=== PATIENT | male | born 1960 | race Caucasian/White ===

== ENCOUNTER 2016-09-04 18:28 | Inpatient (IN) | payer OTHER, MEDICAID ==
[~2016-09-04] VITALS: Ht 180.3 cm; Wt 76.0 kg
--- NOTE | ~2016-09-04 | ST ---
[place], [place] EXERCISE STRESS TEST REPORT NAME: CHIVO GORDILLO I UNIT #: [id number] ROOM: 415 DOCTOR: SUDHAKAR GUNN MD BIRTHDATE: [birth year] DOS: 09/05/2016 Lexiscan portion of the Lexiscan Cardiolite. Baseline cardiogram sinus rhythm with nonspecific ST-T changes. The patient developed chest discomfort with Lexiscan. Q-waves are present in the inferior leads. Blood pressure and heart rate responses normal. FINAL IMPRESSION: Abnormal EKG with old inferior wall myocardial infarction, did develop chest discomfort with Lexiscan. Blood pressure and heart rate response was normal. Nuclear images will be reported separately. SUDHAKAR GUNN MD CM:STRESS:EXERCISE STRESS TEST REPORT [id number] SUDHAKAR GUNN MD
--- NOTE | ~2016-09-04 | CON ---
[place], [place] REPORT OF CONSULTATION NAME: CHIVO GORDILLO I UNIT #: [id number] ROOM: 415 DOCTOR: SUDHAKAR GUNN MD BIRTHDATE: [birth year] DOS: 09/05/2016 CHIEF COMPLAINT: Chest pain. HISTORY OF PRESENT ILLNESS: A 56-year-old gentleman who presented to the Emergency Room with severe chest discomfort, developed while lying in the bed. Chest pain was located in the midsternal area. The patient has a history of previous myocardial infarction and stent placed about couple of years ago, previous catheterization revealed patency of the stents. The patient is noncompliant, does not take his medications. He stopped all his meds. He admits to diaphoresis and shortness of breath. PAST MEDICAL HISTORY: Coronary artery disease, hypertension, myocardial infarction, hyperlipidemia, noncompliance, obstructive sleep apnea. PAST SURGICAL HISTORY: Cardiac stent, history of hernia repair and previous back surgery. SOCIAL HISTORY: Does not drink alcohol. Denies any smoke. Previous three pack per day smoker for 47 years. Also, marijuana use. Ex-smoker. FAMILY HISTORY: Positive for coronary artery disease. ALLERGIES: TRAMADOL. HOME MEDICATIONS: Aspirin and nitroglycerin. REVIEW OF SYSTEMS: CONSTITUTIONAL: No fever, no chills. HEENT: No visual disturbances or hearing problems. RESPIRATORY SYSTEM: ____. CARDIOVASCULAR SYSTEM: As described today in the HPI with chest discomfort. ABDOMEN: No GI issues. GENITOURINARY: No dysuria or hematuria. NEUROLOGIC: No syncope. SKIN: No rashes. PHYSICAL EXAMINATION: VITAL SIGNS: Blood pressure is 115/60. HEENT: Unremarkable. NECK: Supple. No JVD, no thyromegaly, no lymphadenopathy. LUNGS: Diminished breath sounds. HEART: Sounds are regular. ABDOMEN: Soft, nontender. NEUROLOGICAL: Stable. LABORATORY DATA: EKG sinus rhythm with old inferior wall NC. Sodium 143, potassium 3.8, BUN and creatinine are normal. Hemoglobin, hematocrit within normal limits. Chest x-ray is normal. [place], [place] REPORT OF CONSULTATION NAME: CHIVO GORDILLO I UNIT #: [id number] ROOM: 415 DOCTOR: SUDHAKAR GUNN MD BIRTHDATE: [birth year] IMPRESSION AND PLAN: The patient with known coronary artery with significant chest pain, hypertension, noncompliance, hyperlipidemia. The patient stopped taking all the beta blockers and lipid lowering agents and antiplatelet drugs in the past. Proceed with a Lexiscan Cardiolite stress test. Agree with beta blockers and atorvastatin, and we will closely follow up, further management will depend upon the stress findings. SUDHAKAR GUNN MD CM:CONSTR:REPORT OF CONSULTATION 0725 09/05/16 2204 interface
[~2016-09-04 18:28] MED LIST: 'PARAFON FORTE500 M1 PO; ANAPROX DS550 MG PO; ASPI-COR81 M1 PO; ASPIR-TRIN325 MG PO; ASPIRIN CHEWABL81 M1 PO; ATORVASTATIN CA80 M1 PO; BLOOD PRESURE MED; CLOPIDOGREL75 MG PO; CUBICIN500 MG IV; CYCLOBENZAPRINE10 MG PO; DOLOBID500 MG PO; FLEXERIL10 MG PO; HEPARIN IV; HYDROCO/APAP TAB 5-3; LEVAQUIN750 MG PO; LEVOFLOXACIN; LIDODERM5% TP; LISINOPRIL10 M1 PO; LISINOPRIL5 MG PO; LOPRESSOR25 MG PO; METOPROLOL SUCC25 M2 PO; NAPROSYN500 MG PO; NEURONTIN300 MG PO; NITROSTAT0.4 MG SL; NORCO 325 MG-51 TAB PO; PERCOCET 325 MG1 TA2 PO; PLAVIX75 M1 PO; PLAVIX75 MG PO; PREDNISONE20 M1 PO; PROBIOTIC FORMU1 CAP PO; PROCHLORPERAZIN10 M1 PO; RANEXA500 MG PO; SIMVASTATIN20 MG PO; SIMVASTATIN40 MG PO; SORBITRATE PO; TOBRADEX 0.1%-0.5 ML OPH; TRAMADOL HCL50 MG PO; ULTRAM50 MG PO; VIBRAMYCIN100 MG PO; VICODIN 5-3001 EACH PO; [UNRECOGNIZED DRUG - OTHER]; [UNRECOGNIZED DRUG - OTHER] IV; [UNRECOGNIZED DRUG - OTHER] IV
[2016-09-04 18:44] VITALS: BP 120/88
[2016-09-04 18:50] LABS: BASO # 0.1 10*3/uL (0.0-0.1); BASO % 0.5 % (0.0-1.0); EOS # 0.2 10*3/uL (0.0-0.4); EOS % 1.3 % (1.0-4.0); HEMATOCRIT 47.5 % (42.0-52.0); HEMOGLOBIN 15.1 g/dl (14.0-18.0); LYMPH # 2.4 10*3/uL (1.3-4.4); MEAN CORPUSCULAR HGB 29.5 pg (27.0-31.0); MEAN CORPUSCULAR HGB CONC 31.8 g/dl (33.0-37.0); MEAN PLATELET VOLUME 9.6 fl (9.6-12.3); MONO # 0.5 10*3/uL (0.1-1.0); MONO % 4.6 % (3.0-9.0); NEUT # 8.2 10*3/uL (2.3-7.9); NEUT % 72.4 % (47.0-73.0); PLATELET COUNT AUTOMATED 314 10*3/uL (130-400); RED BLOOD COUNT 5.11 10*6/uL (4.50-5.90); RED CELL DISTRI WIDTH 14.6 % (0-14.5); WHITE BLOOD COUNT 11.3 10*3/uL (4.8-10.8)
[2016-09-04 19:00] LABS: INTERNATIONAL NORM RATIO 0.9 (2.0-3.5)
[2016-09-04 19:06] LABS: ALKALINE PHOSPHATASE 113 U/L (45-117); BILIRUBIN, TOTAL 0.2 mg/dl (0.2-1.0); BUN 6 mg/dl (7-24); CARBON DIOXIDE 31 mmol/L (21-32); CHLORIDE 105 mmol/L (98-107); EST GLOM FILT AFRICAN AMERICAN > 60 ml/min; GLUCOSE 93 mg/dL (65-99); MAGNESIUM 2.3 mg/dL (1.5-2.1); POTASSIUM 3.8 mmol/L (3.5-5.1); SGOT/AST 10 IU/L (3-35); SGPT/ALT 11 U/L (12-78); SODIUM 143 mmol/L (136-145); TOTAL PROTEIN 7.5 gm/dL (6.4-8.2)
[2016-09-04 19:09] LABS: TROPONIN I < 0.015 ng/ml (<0.045)
[2016-09-04] MEDS ORDERED: ASPIRIN CHEWABL81 MG PO (19:15)
[2016-09-04] MEDS ORDERED: NITROSTAT0.3 M1 SL (19:15)
[2016-09-04 19:20] VITALS: BP 115/78
[2016-09-04 19:40] VITALS: BP 122/89
[2016-09-04 20:26] VITALS: BP 115/59
[2016-09-04 21:00] VITALS: BP 115/80
[2016-09-05] VITALS: BP 113/93
[2016-09-05 00:43] LABS: CKMB 0.7 ng/ml (0.5-3.6); CPK 38 U/L (39-308); TROPONIN I < 0.015 ng/ml (<0.045)
[2016-09-05 08:00] VITALS: BP 121/82
[2016-09-05 09:12] LABS: BASO # 0.1 10*3/uL (0.0-0.1); BASO % 0.4 % (0.0-1.0); EOS # 0.2 10*3/uL (0.0-0.4); EOS % 1.9 % (1.0-4.0); HEMATOCRIT 48.5 % (42.0-52.0); HEMOGLOBIN 15.2 g/dl (14.0-18.0); LYMPH # 1.7 10*3/uL (1.3-4.4); MEAN CORPUSCULAR HGB 29.5 pg (27.0-31.0); MEAN CORPUSCULAR HGB CONC 31.3 g/dl (33.0-37.0); MEAN PLATELET VOLUME 9.4 fl (9.6-12.3); MONO # 0.5 10*3/uL (0.1-1.0); MONO % 4.1 % (3.0-9.0); NEUT # 8.9 10*3/uL (2.3-7.9); NEUT % 78.4 % (47.0-73.0); PLATELET COUNT AUTOMATED 317 10*3/uL (130-400); RED BLOOD COUNT 5.16 10*6/uL (4.50-5.90); RED CELL DISTRI WIDTH 14.7 % (0-14.5); WHITE BLOOD COUNT 11.3 10*3/uL (4.8-10.8)
[2016-09-05 09:51] LABS: ALBUMIN 2.8 gm/dl (3.1-4.5); ALKALINE PHOSPHATASE 111 U/L (45-117); BILIRUBIN, TOTAL 0.2 mg/dl (0.2-1.0); BUN 8 mg/dl (7-24); CARBON DIOXIDE 34 mmol/L (21-32); CHLORIDE 105 mmol/L (98-107); CHOLESTEROL 181 mg/dL (<200); EST GLOM FILT AFRICAN AMERICAN > 60 ml/min; FREE T4 0.86 ng/dl (0.76-1.46); GLUCOSE 123 mg/dL (65-99); HDL CHOLESTEROL 38 mg/dl (40-60); LDL CHOLESTEROL 123 mg/dL (9-159); MAGNESIUM 2.3 mg/dL (1.5-2.1); PHOSPHOROUS 2.6 mg/dL (2.5-4.9); POTASSIUM 3.5 mmol/L (3.5-5.1); SGOT/AST 8 IU/L (3-35); SGPT/ALT 9 U/L (12-78); SODIUM 141 mmol/L (136-145); TOTAL PROTEIN 7.3 gm/dL (6.4-8.2); TRIGLYCERIDES 99 mg/dl (<150); VLDL CHOLESTEROL 20 mg/dL (6-40)
[2016-09-05 09:55] LABS: VITAMIN D, 25-HYDROXY 12.9 ng/mL (30-100)
[2016-09-05 09:56] LABS: FOLIC ACID 5.55 ng/mL (>5.38)
[2016-09-05 10:15] LABS: HEMOGLOBIN A1c 5.7 % (4.8-5.6)
[2016-09-05 11:01] LABS: INTERNATIONAL NORM RATIO 0.9 (2.0-3.5)
[2016-09-05 11:24] LABS: CKMB 0.9 ng/ml (0.5-3.6); CPK 39 U/L (39-308)
[2016-09-05 11:25] LABS: TROPONIN I < 0.015 ng/ml (<0.045)
[2016-09-05 12:00] VITALS: BP 110/68
[2016-09-05 16:00] VITALS: BP 107/77
[2016-09-05] MEDS ORDERED: ATORVASTATIN CA40 M1 PO (18:29)
[2016-09-05] MEDS ORDERED: METOPROLOL SUCC25 M2 PO (18:29)
[2016-09-05 20:00] VITALS: BP 97/61
[2016-09-06] VITALS: BP 106/68
[2016-09-06] MEDS ORDERED: B12100 MC1 PO (09:50)
[2016-09-06] MEDS ORDERED: VITAMIN D31000 IU PO (09:50)
== END 2016-09-06 08:05 | disposition short-term general hospital (02) | DRG 281 ==
LOC: ED 18:28 → EDHOLD 19:49 → 4E 19:49
PROVIDERS: Emergency Medicine; Hospitalist
PROC: 4A02XM4 Measurement of Cardiac Total Activity, External Approach (ICD-10-PCS; principal; 2016-09-05)
PROC: 3E073KZ Introduction of Other Diagnostic Substance into Coronary Artery, Percutaneous Approach (ICD-10-PCS; principal; 2016-09-05)
DX: I21.3 ST elevation (STEMI) myocardial infarction of unspecified site (principal); E44.0 Moderate protein-calorie malnutrition; E83.41 Hypermagnesemia; I10 Essential (primary) hypertension; I25.10 Atherosclerotic heart disease of native coronary artery without angina pectoris; G47.33 Obstructive sleep apnea (adult) (pediatric); E78.5 Hyperlipidemia, unspecified; M19.90 Unspecified osteoarthritis, unspecified site; D72.829 Elevated white blood cell count, unspecified; E55.9 Vitamin D deficiency, unspecified; R94.39 Abnormal result of other cardiovascular function study; E53.8 Deficiency of other specified B group vitamins; Z82.49 Family history of ischemic heart disease and other diseases of the circulatory system; Z84.89 Family history of other specified conditions; Z88.8 Allergy status to other drugs, medicaments and biological substances; Z95.5 Presence of coronary angioplasty implant and graft; Z79.82 Long term (current) use of aspirin; I25.2 Old myocardial infarction; Z79.899 Other long term (current) drug therapy; Z91.19 Patient's noncompliance with other medical treatment and regimen; Z68.25 Body mass index [BMI] 25.0-25.9, adult; Z68.23 Body mass index [BMI] 23.0-23.9, adult

== ENCOUNTER 2016-09-14 16:13 | Inpatient (IN) | payer OTHER, MEDICAID ==
[2016-09-14] VITALS (9 sets, daily range): BP systolic 77–122; BP diastolic 40–80
[~2016-09-14] VITALS: Ht 180.3 cm; Wt 77.8 kg
[~2016-09-14 16:13] MED LIST changes: +ASPIRIN CHEWABL81 MG PO; +ATORVASTATIN CA40 M1 PO; +B12100 MC1 PO; +NITROSTAT0.3 M1 SL; +VITAMIN D31000 IU PO
[2016-09-14 16:34] LABS: BASO % 0.4 % (0.0-1.0); EOS # 0.2 10*3/uL (0.0-0.4); EOS % 2.1 % (1.0-4.0); HEMATOCRIT 37.5 % (42.0-52.0); HEMOGLOBIN 11.9 g/dl (14.0-18.0); IG # 0.1 10*3/uL (0.0-0.1); LYMPH # 2.5 10*3/uL (1.3-4.4); LYMPH % 24.3 % (27.0-41.0); MEAN CELL VOLUME 92.4 fl (80.0-94.0); MEAN CORPUSCULAR HGB 29.3 pg (27.0-31.0); MEAN CORPUSCULAR HGB CONC 31.7 g/dl (33.0-37.0); MEAN PLATELET VOLUME 9.7 fl (9.6-12.3); MONO # 0.6 10*3/uL (0.1-1.0); MONO % 6.2 % (3.0-9.0); NEUT # 6.9 10*3/uL (2.3-7.9); NEUT % 66.5 % (47.0-73.0); PLATELET COUNT AUTOMATED 313 10*3/uL (130-400); RED BLOOD COUNT 4.06 10*6/uL (4.50-5.90); RED CELL DISTRI WIDTH 14.8 % (0-14.5); WHITE BLOOD COUNT 10.3 10*3/uL (4.8-10.8)
[2016-09-14 16:43] LABS: PROTHROMBIN TIME 10.5 SECONDS (9.0-12.4)
[2016-09-14 16:49] LABS: ALBUMIN 2.7 gm/dl (3.1-4.5); ALKALINE PHOSPHATASE 81 U/L (45-117); BILIRUBIN, TOTAL 0.5 mg/dl (0.2-1.0); BUN 7 mg/dl (7-24); C-REACTIVE PROTEIN 3.52 MG/DL (0-0.3); CARBON DIOXIDE 30 mmol/L (21-32); CHLORIDE 108 mmol/L (98-107); CKMB 1.6 ng/ml (0.5-3.6); CPK 47 U/L (39-308); EST GLOM FILT AFRICAN AMERICAN > 60 ml/min; GLUCOSE 91 mg/dL (65-99); MAGNESIUM 2.2 mg/dL (1.5-2.1); POTASSIUM 3.4 mmol/L (3.5-5.1); SGOT/AST 12 IU/L (3-35); SGPT/ALT 11 U/L (12-78); SODIUM 147 mmol/L (136-145); TOTAL PROTEIN 6.4 gm/dL (6.4-8.2)
[2016-09-14 16:52] LABS: TROPONIN I 0.078 ng/ml (<0.045)
[2016-09-14] MEDS ORDERED: CLOPIDOGREL75 MG PO (17:44)
[2016-09-14] MEDS ORDERED: COZAAR25 M1 PO (18:58)
== END 2016-09-14 22:05 | disposition left against medical advice (07) | DRG 312 ==
LOC: ED 16:13 → EDHOLD 17:45 → 5E 17:59
PROVIDERS: Student in an Organized Health Care Education/Training Program
DX: I95.2 Hypotension due to drugs (principal); E43 Unspecified severe protein-calorie malnutrition; E87.0 Hyperosmolality and hypernatremia; E53.0 Riboflavin deficiency; I25.10 Atherosclerotic heart disease of native coronary artery without angina pectoris; I25.2 Old myocardial infarction; I10 Essential (primary) hypertension; E78.5 Hyperlipidemia, unspecified; M51.36 Other intervertebral disc degeneration, lumbar region; G47.33 Obstructive sleep apnea (adult) (pediatric); Z95.5 Presence of coronary angioplasty implant and graft; Z82.49 Family history of ischemic heart disease and other diseases of the circulatory system; Z88.6 Allergy status to analgesic agent; D64.9 Anemia, unspecified; R79.82 Elevated C-reactive protein (CRP); E83.41 Hypermagnesemia; E87.6 Hypokalemia; E55.9 Vitamin D deficiency, unspecified; Z68.23 Body mass index [BMI] 23.0-23.9, adult; R07.9 Chest pain, unspecified

== ENCOUNTER 2017-01-01 22:42 | Emergency (ER) | payer OTHER ==
[~2017-01-01] VITALS: Ht 180.3 cm; Wt 72.6 kg
[~2017-01-01 22:42] MED LIST changes: +COZAAR25 M1 PO
[2017-01-01 22:47] VITALS: BP 148/78
[2017-01-02] MEDS ORDERED: Motrin,Rufen800 MG PO (01:42)
[2017-01-02] MEDS ORDERED: PERCOCET 325 MG1 TA2 PO (01:42)
== END 2017-01-02 02:29 | disposition home or self-care (01) ==
LOC: ED 22:42
DX: R09.1 Pleurisy (principal); I25.10 Atherosclerotic heart disease of native coronary artery without angina pectoris; I25.2 Old myocardial infarction; E78.5 Hyperlipidemia, unspecified; I10 Essential (primary) hypertension; M51.36 Other intervertebral disc degeneration, lumbar region; F17.200 Nicotine dependence, unspecified, uncomplicated; Z88.6 Allergy status to analgesic agent; Z79.82 Long term (current) use of aspirin; Z79.899 Other long term (current) drug therapy

== ENCOUNTER 2017-07-22 16:05 | Emergency (ER) | payer OTHER ==
[~2017-07-22] VITALS: Ht 154.9 cm; Wt 74.8 kg
[~2017-07-22 16:05] MED LIST changes: +Motrin,Rufen800 MG PO
[2017-07-22 16:20] VITALS: BP 149/89
[2017-07-22] MEDS ORDERED: MEDROL DOSEPAK4 MG PO (17:31)
[2017-07-22] MEDS ORDERED: NAPROSYN500 MG PO (17:31)
== END 2017-07-22 17:38 | disposition home or self-care (01) ==
LOC: ED 16:05
DX: R09.1 Pleurisy (principal); I25.10 Atherosclerotic heart disease of native coronary artery without angina pectoris; I10 Essential (primary) hypertension; E78.5 Hyperlipidemia, unspecified; I25.2 Old myocardial infarction; Z88.5 Allergy status to narcotic agent; Z79.82 Long term (current) use of aspirin; Z79.899 Other long term (current) drug therapy

== ENCOUNTER 2017-08-06 12:02 | Emergency (ER) | payer OTHER ==
[~2017-08-06] VITALS: Ht 180.3 cm; Wt 72.6 kg
[~2017-08-06 12:02] MED LIST changes: +MEDROL DOSEPAK4 MG PO
[2017-08-06 12:09] VITALS: BP 136/73
[2017-08-06] MEDS ORDERED: Tobrex Ophth S2.5 ML OPH (12:18)
== END 2017-08-06 12:24 | disposition home or self-care (01) ==
LOC: ED 12:02
DX: H10.9 Unspecified conjunctivitis (principal); F12.10 Cannabis abuse, uncomplicated; Z87.891 Personal history of nicotine dependence; Z95.5 Presence of coronary angioplasty implant and graft; Z98.890 Other specified postprocedural states; Z79.82 Long term (current) use of aspirin; Z79.899 Other long term (current) drug therapy; Z88.6 Allergy status to analgesic agent

== ENCOUNTER 2017-08-11 13:00 | Emergency (ER) | payer OTHER ==
[~2017-08-11] VITALS: Ht 180.3 cm; Wt 74.8 kg
[~2017-08-11 13:00] MED LIST changes: +Tobrex Ophth S2.5 ML OPH
[2017-08-11 13:10] VITALS: BP 133/93
[2017-08-11] MEDS ORDERED: FLONASE ALLERG9.9 ML NAS (13:18)
[2017-08-11] MEDS ORDERED: CLARITIN10 MG PO (13:18)
[2017-08-11] MEDS ORDERED: TOBRADEX 0.1%-0.5 ML OPH (13:19)
== END 2017-08-11 13:39 | disposition home or self-care (01) ==
LOC: ED 13:00
DX: H10.9 Unspecified conjunctivitis (principal); I10 Essential (primary) hypertension; I25.10 Atherosclerotic heart disease of native coronary artery without angina pectoris; E78.5 Hyperlipidemia, unspecified; Z88.6 Allergy status to analgesic agent; Z79.899 Other long term (current) drug therapy; Z79.82 Long term (current) use of aspirin; Z87.891 Personal history of nicotine dependence

== ENCOUNTER 2017-12-05 21:36 | Inpatient (IN) | payer OTHER ==
[~2017-12-05] VITALS: Ht 180.3 cm; Wt 78.7 kg
--- NOTE | ~2017-12-05 | EKG ---
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
--- NOTE | ~2017-12-05 | EKG ---
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
[~2017-12-05 21:36] MED LIST changes: +CLARITIN10 MG PO; +FLONASE ALLERG9.9 ML NAS
[2017-12-05 21:38] VITALS: BP 154/87
[2017-12-05 21:46] LABS: BASO # 0.1 10*3/uL (0.0-0.1); BASO % 0.7 % (0.0-1.0); EOS # 0.2 10*3/uL (0.0-0.4); EOS % 1.5 % (1.0-4.0); HEMATOCRIT 51.7 % (42.0-52.0); HEMOGLOBIN 15.8 g/dl (14.0-18.0); LYMPH # 3.2 10*3/uL (1.3-4.4); LYMPH % 28.8 % (27.0-41.0); MEAN CELL VOLUME 91.5 fl (80.0-94.0); MEAN CORPUSCULAR HGB CONC 30.6 g/dl (33.0-37.0); MEAN PLATELET VOLUME 9.9 fl (9.6-12.3); MONO # 0.6 10*3/uL (0.1-1.0); MONO % 5.4 % (3.0-9.0); NEUT % 63.3 % (47.0-73.0); PLATELET COUNT AUTOMATED 305 10*3/uL (130-400); RED BLOOD COUNT 5.65 10*6/uL (4.50-5.90); RED CELL DISTRI WIDTH 15.4 % (0-14.5)
[2017-12-05 21:57] LABS: ACT PARTIAL THROMBO TIME 23.7 SECONDS (20.8-31.5)
[2017-12-05 22:01] VITALS: BP 168/64
[2017-12-05 22:04] LABS: ALBUMIN 3.3 gm/dl (3.1-4.5); ALKALINE PHOSPHATASE 107 U/L (45-117); BUN 7 mg/dl (7-24); CHLORIDE 102 mmol/L (98-107); CREATININE 1.22 mg/dL (0.70-1.30); POTASSIUM 3.5 mmol/L (3.5-5.1); SGOT/AST 9 IU/L (3-35); SGPT/ALT 9 U/L (12-78); SODIUM 140 mmol/L (136-145)
[2017-12-05 22:05] VITALS: BP 154/87
[2017-12-05 22:05] LABS: TROPONIN I < 0.015 ng/ml (<0.045)
[2017-12-05 23:00] VITALS: BP 123/75
[2017-12-05 23:24] VITALS: BP 102/64
[2017-12-06] VITALS: BP 131/94
[2017-12-06 00:05] VITALS: BP 131/94
== END 2017-12-06 01:25 | disposition left against medical advice (07) | DRG 392 ==
LOC: ED 21:36 → EDHOLD 22:42 → 5E 23:38
PROVIDERS: Emergency Medicine Emergency Medical Services
DX: K21.9 Gastro-esophageal reflux disease without esophagitis (principal); I42.0 Dilated cardiomyopathy; I50.22 Chronic systolic (congestive) heart failure; I11.0 Hypertensive heart disease with heart failure; I25.10 Atherosclerotic heart disease of native coronary artery without angina pectoris; E78.5 Hyperlipidemia, unspecified; Z53.21 Procedure and treatment not carried out due to patient leaving prior to being seen by health care provider; G47.33 Obstructive sleep apnea (adult) (pediatric); F41.9 Anxiety disorder, unspecified; R00.0 Tachycardia, unspecified; D72.829 Elevated white blood cell count, unspecified; I35.8 Other nonrheumatic aortic valve disorders; D64.9 Anemia, unspecified; E53.8 Deficiency of other specified B group vitamins; E55.9 Vitamin D deficiency, unspecified; R73.03 Prediabetes; M51.36 Other intervertebral disc degeneration, lumbar region; J44.9 Chronic obstructive pulmonary disease, unspecified; F12.10 Cannabis abuse, uncomplicated; Z88.8 Allergy status to other drugs, medicaments and biological substances; I25.2 Old myocardial infarction; Z82.49 Family history of ischemic heart disease and other diseases of the circulatory system; Z79.82 Long term (current) use of aspirin; Z79.899 Other long term (current) drug therapy

== ENCOUNTER 2018-08-16 15:38 | Emergency (ER) | payer OTHER ==
[~2018-08-16] VITALS: Ht 180.3 cm; Wt 75.7 kg
--- NOTE | ~2018-08-16 | EKG ---
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
[2018-08-16 15:39] VITALS: BP 144/88
[2018-08-16 16:54] LABS: BASO # 0.1 10*3/uL (0.0-0.1); BASO % 0.7 % (0.0-1.0); EOS % 0.3 % (1.0-4.0); HEMATOCRIT 47.2 % (42.0-52.0); HEMOGLOBIN 15.1 g/dl (14.0-18.0); LYMPH # 0.4 10*3/uL (1.3-4.4); LYMPH % 5.4 % (27.0-41.0); MEAN CELL VOLUME 90.8 fl (80.0-94.0); MEAN PLATELET VOLUME 9.9 fl (9.6-12.3); MONO # 0.6 10*3/uL (0.1-1.0); MONO % 8.5 % (3.0-9.0); NEUT % 84.8 % (47.0-73.0); PLATELET COUNT AUTOMATED 313 10*3/uL (130-400); RED CELL DISTRI WIDTH 15.2 % (0-14.5)
[2018-08-16 17:50] LABS: ALBUMIN 3.1 gm/dl (3.1-4.5); ALKALINE PHOSPHATASE 115 U/L (45-117); BUN 8 mg/dl (7-24); CHLORIDE 103 mmol/L (98-107); CREATININE 1.06 mg/dL (0.70-1.30); LIPASE 59 U/L (73-393); POTASSIUM 4.1 mmol/L (3.5-5.1); SGOT/AST 16 IU/L (3-35); SGPT/ALT 10 U/L (12-78); SODIUM 137 mmol/L (136-145); TOTAL PROTEIN 8.5 gm/dL (6.4-8.2)
[2018-08-16 18:01] LABS: BILIRUBIN 1+ (NEGATIVE); BLOOD 2+ (NEGATIVE); CLARITY CLEAR (CLEAR); COLOR YELLOW (YELLOW); GLUCOSE NEGATIVE (NEGATIVE); KETONE 3+ (NEGATIVE); LEUKO ESTERASE NEGATIVE (NEGATIVE); NITRITE NEGATIVE (NEGATIVE); SPECIFIC GRAVITY >= 1.030 (1.005-1.030); UROBILINOGEN 0.2 E.U./dl (0.2-1.0)
[2018-08-16 18:09] LABS: TROPONIN I < 0.015 ng/ml (<0.045)
[2018-08-16 18:17] LABS: EPITHELIAL CELLS 0-2; HYALINE CAST 0-2; MUCOUS 3+; WBC 0-2 wbc/hpf (0-5)
[2018-08-16] MEDS ORDERED: PREDNISONE10 MG PO (18:32)
[2018-08-16] MEDS ORDERED: VIBRAMYCIN100 MG PO (18:32)
[2018-08-16] MEDS ORDERED: PROAIR HFA8.5 GM INH (18:32)
[2018-08-16] MEDS ORDERED: TESSALON PERLE100 M1 PO (18:32)
[2018-10-31] MEDS ORDERED: INDOMETHACIN50 MG PO (01:31)
== END 2018-08-16 18:55 | disposition home or self-care (01) ==
LOC: ED 15:38
PROVIDERS: Physician Assistant
DX: B34.9 Viral infection, unspecified (principal); J20.9 Acute bronchitis, unspecified; J44.9 Chronic obstructive pulmonary disease, unspecified; Z88.6 Allergy status to analgesic agent; Z79.899 Other long term (current) drug therapy; Z79.82 Long term (current) use of aspirin; Z72.0 Tobacco use

== ENCOUNTER 2019-01-21 23:30 | Emergency (ER) | payer OTHER ==
[~2019-01-21] VITALS: Ht 180.3 cm; Wt 81.6 kg
--- NOTE | ~2019-01-21 | EKG ---
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
[~2019-01-21 23:30] MED LIST changes: +INDOMETHACIN50 MG PO; +PREDNISONE10 MG PO; +PROAIR HFA8.5 GM INH; +TESSALON PERLE100 M1 PO
[2019-01-21 23:31] VITALS: BP 165/97
[2019-01-21 23:50] LABS: BASO # 0.1 10*3/uL (0.0-0.1); BASO % 0.6 % (0.0-1.0); EOS # 0.1 10*3/uL (0.0-0.4); EOS % 1.2 % (1.0-4.0); HEMATOCRIT 43.8 % (42.0-52.0); LYMPH # 2.6 10*3/uL (1.3-4.4); LYMPH % 23.7 % (27.0-41.0); MEAN CORPUSCULAR HGB 29.4 pg (27.0-31.0); MEAN PLATELET VOLUME 9.9 fl (9.6-12.3); MONO # 0.7 10*3/uL (0.1-1.0); MONO % 6.6 % (3.0-9.0); NEUT # 7.5 10*3/uL (2.3-7.9); NEUT % 67.7 % (47.0-73.0); PLATELET COUNT AUTOMATED 341 10*3/uL (130-400); RED BLOOD COUNT 4.76 10*6/uL (4.50-5.90); RED CELL DISTRI WIDTH 14.6 % (0-14.5); WHITE BLOOD COUNT 11.1 10*3/uL (4.8-10.8)
[2019-01-22 00:01] LABS: ACT PARTIAL THROMBO TIME 28.5 SECONDS (20.0-32.1)
[2019-01-22 00:07] LABS: ALBUMIN 2.8 gm/dl (3.1-4.5); ALKALINE PHOSPHATASE 96 U/L (45-117); BUN 9 mg/dl (7-24); CHLORIDE 106 mmol/L (98-107); POTASSIUM 3.4 mmol/L (3.5-5.1); SGOT/AST 7 IU/L (3-35); SGPT/ALT 7 U/L (12-78); SODIUM 141 mmol/L (136-145); TOTAL PROTEIN 7.3 gm/dL (6.4-8.2)
[2019-01-22 00:08] LABS: TROPONIN I < 0.015 ng/ml (<0.045)
== END 2019-01-22 01:00 | disposition left against medical advice (07) ==
LOC: ED 23:30
PROVIDERS: Nurse Practitioner Family
DX: R07.9 Chest pain, unspecified (principal); R06.02 Shortness of breath; I25.10 Atherosclerotic heart disease of native coronary artery without angina pectoris; J44.9 Chronic obstructive pulmonary disease, unspecified; I25.2 Old myocardial infarction; E78.5 Hyperlipidemia, unspecified; I11.0 Hypertensive heart disease with heart failure; I50.22 Chronic systolic (congestive) heart failure; Z88.6 Allergy status to analgesic agent

== ENCOUNTER → 2019-03-28 | Day surgery (SDC) | payer OTHER ==
[~2019-03-28] VITALS: Ht 180.3 cm; Wt 81.6 kg
[~2019-03-28] MED LIST changes: +ASPIRIN ADULT L81 M2 PO; +CIPROFLOXACIN250 MG PO; +METRONIDAZOLE500 M1 PO
--- NOTE | ~2019-03-28 | O ---
[place], [place] OPERATIVE NOTE NAME: CHIVO GORDILLO I UNIT #: [id number] ROOM: DOCTOR: RSO JACOBSEN MD BIRTHDATE: [birth year] DOS: 03/28/2019 GASTROENDOSCOPIC REPORT INDICATIONS: A 58-year-old patient with chief complaint of blood in stool. ALLERGIES: ULTRAM. FAMILY HISTORY: Grandfather with colon carcinoma. PAST SURGICAL HISTORY: Back surgery x 3 and left knee. SOCIAL HISTORY: Smoker, nonalcohol consumer. PROCEDURE: Today's procedure part of investigation is colonoscopy plus 10 polypectomy by snare. PREMEDICATION: Propofol. SCOPE: Olympus forward-viewing colonoscope 10L video. REPORT: After putting the patient in left lateral position and application of lubricant to the scope, the scope was introduced. Thereafter, under direct visualization, advanced through the length of colon with some difficulty due to a semi-liquid stool. However, 3 polypoid lesion from sigmoid, 4 from splenic, 3 from the cecum with snare was polypectomized. Polyps were relatively large, samples as much as possible collected. The patient extubated, tolerated the procedure well. IMPRESSION: Colonoscopy with polypectomies of sigmoid, splenic flexure, and cecum times x 10 polyps. PLAN AND DISCUSSION: This patient requires another session of colonoscopy perhaps in a month or 2 to harvest more hidden polyps. Work in progress. [place], [place] OPERATIVE NOTE NAME: CHIVO GORDILLO I UNIT #: [id number] ROOM: DOCTOR: ROS JACOBSEN MD BIRTHDATE: [birth year] ROS JACOBSEN MD CM:OPRECORD:OPERATIVE NOTE 1407 1420 ROS JACOBSEN MD 03/28/19 1418 interface
[2019-03-28 12:15] VITALS: BP 143/74
[2019-03-28 14:02] VITALS: BP 101/62
[2019-03-28 14:17] VITALS: BP 114/77
[2019-03-28 14:30] VITALS: BP 119/82
== END | disposition home or self-care (01) ==
LOC: SDC 03-26 09:30
DX: K92.1 Melena (principal); D12.0 Benign neoplasm of cecum; D12.5 Benign neoplasm of sigmoid colon; D12.3 Benign neoplasm of transverse colon; I25.10 Atherosclerotic heart disease of native coronary artery without angina pectoris; I10 Essential (primary) hypertension; J44.9 Chronic obstructive pulmonary disease, unspecified; I25.2 Old myocardial infarction; F17.210 Nicotine dependence, cigarettes, uncomplicated; Z79.899 Other long term (current) drug therapy; Z98.890 Other specified postprocedural states; Z88.8 Allergy status to other drugs, medicaments and biological substances; Z82.49 Family history of ischemic heart disease and other diseases of the circulatory system; Z82.3 Family history of stroke

== ENCOUNTER → 2019-05-09 | Day surgery (SDC) | payer OTHER ==
[~2019-05-09] VITALS: Ht 180.3 cm; Wt 81.6 kg
[2019-05-09 13:00] VITALS: BP 151/73
[2019-05-09 14:37] VITALS: BP 97/34
[2019-05-09 14:52] VITALS: BP 135/66
[2019-05-09 15:07] VITALS: BP 135/78
== END | disposition home or self-care (01) ==
LOC: SDC 05-05 11:00
DX: Z09 Encounter for follow-up examination after completed treatment for conditions other than malignant neoplasm (principal); D12.0 Benign neoplasm of cecum; I25.10 Atherosclerotic heart disease of native coronary artery without angina pectoris; I10 Essential (primary) hypertension; J44.9 Chronic obstructive pulmonary disease, unspecified; M10.9 Gout, unspecified; E78.00 Pure hypercholesterolemia, unspecified; G47.30 Sleep apnea, unspecified; I25.2 Old myocardial infarction; Z98.890 Other specified postprocedural states; Z86.010 Personal history of colon polyps; Z82.49 Family history of ischemic heart disease and other diseases of the circulatory system; Z82.3 Family history of stroke

== ENCOUNTER 2019-07-01 23:45 | Emergency (ER) | payer OTHER ==
[~2019-07-01] VITALS: Ht 172.7 cm; Wt 77.1 kg
[2019-07-01 23:49] VITALS: BP 151/94
[2019-07-02 00:41] LABS: BASO # 0.1 10*3/uL (0.0-0.1); EOS # 0.3 10*3/uL (0.0-0.4); EOS % 2.2 % (1.0-4.0); HEMATOCRIT 47.8 % (42.0-52.0); HEMOGLOBIN 14.8 g/dl (14.0-18.0); LYMPH # 3.4 10*3/uL (1.3-4.4); LYMPH % 29.4 % (27.0-41.0); MEAN CELL VOLUME 94.8 fl (80.0-94.0); MEAN CORPUSCULAR HGB 29.4 pg (27.0-31.0); MEAN PLATELET VOLUME 9.6 fl (9.6-12.3); MONO # 0.7 10*3/uL (0.1-1.0); MONO % 6.1 % (3.0-9.0); NEUT # 7.1 10*3/uL (2.3-7.9); PLATELET COUNT AUTOMATED 333 10*3/uL (130-400); RED BLOOD COUNT 5.04 10*6/uL (4.50-5.90); RED CELL DISTRI WIDTH 15.4 % (0-14.5); WHITE BLOOD COUNT 11.6 10*3/uL (4.8-10.8)
[2019-07-02 00:53] LABS: BUN 8 mg/dl (7-24); CHLORIDE 107 mmol/L (98-107); CREATININE 1.14 mg/dL (0.70-1.30); POTASSIUM 3.6 mmol/L (3.5-5.1); SODIUM 141 mmol/L (136-145)
[2019-07-02] MEDS ORDERED: CYCLOBENZAPRINE10 MG PO (03:11)
[2019-07-02] MEDS ORDERED: MEDROL DOSEPAK4 MG PO (03:11)
== END 2019-07-02 03:36 | disposition home or self-care (01) ==
LOC: ED 23:45
PROVIDERS: Emergency Medicine
DX: M48.061 Spinal stenosis, lumbar region without neurogenic claudication (principal); M54.31 Sciatica, right side; I25.10 Atherosclerotic heart disease of native coronary artery without angina pectoris; J44.9 Chronic obstructive pulmonary disease, unspecified; I11.0 Hypertensive heart disease with heart failure; I50.22 Chronic systolic (congestive) heart failure; E78.00 Pure hypercholesterolemia, unspecified; I25.2 Old myocardial infarction; G47.33 Obstructive sleep apnea (adult) (pediatric); M10.9 Gout, unspecified; Z88.5 Allergy status to narcotic agent; Z79.82 Long term (current) use of aspirin; Z87.891 Personal history of nicotine dependence

== ENCOUNTER 2019-12-08 10:56 | Emergency (ER) | payer OTHER ==
[~2019-12-08] VITALS: Ht 180.3 cm; Wt 81.6 kg
[2019-12-08 11:08] VITALS: BP 130/87
[2019-12-08] MEDS ORDERED: CYCLOBENZAPRINE10 MG PO (12:08)
[2019-12-08] MEDS ORDERED: NAPROSYN500 MG PO (12:08)
[2019-12-08] MEDS ORDERED: MEDROL DOSEPAK4 MG PO (12:08)
== END 2019-12-08 13:15 | disposition home or self-care (01) ==
LOC: ED 10:56
DX: M54.5 Low back pain (principal); M54.6 Pain in thoracic spine; I10 Essential (primary) hypertension; I25.10 Atherosclerotic heart disease of native coronary artery without angina pectoris; I25.2 Old myocardial infarction; J44.9 Chronic obstructive pulmonary disease, unspecified; M10.9 Gout, unspecified; Z88.6 Allergy status to analgesic agent; Z79.82 Long term (current) use of aspirin

== ENCOUNTER → 2020-05-31 | Outpatient (CLI) | payer OTHER ==
[2020-06-01 11:11] LABS: ANGIOTENSIN-CONVERTING ENZYME 34 U/L (14-82)
[2020-06-07 18:06] LABS: HLA-B27 ANTIGEN Positive (.)
== END | disposition home or self-care (01) ==
LOC: LAB 13:26
PROVIDERS: ATTEND Ophthalmology
DX: J44.9 Chronic obstructive pulmonary disease, unspecified (principal); H20.012 Primary iridocyclitis, left eye; Z95.828 Presence of other vascular implants and grafts

== ENCOUNTER 2020-06-29 14:49 | Emergency (ER) | payer OTHER ==
[~2020-06-29] VITALS: Ht 180.3 cm; Wt 84.4 kg
[2020-06-29 15:41] LABS: BASO # 0.1 10*3/uL (0.0-0.1); BASO % 0.6 % (0.0-1.0); EOS # 0.1 10*3/uL (0.0-0.4); EOS % 1.6 % (1.0-4.0); HEMATOCRIT 47.6 % (42.0-52.0); LYMPH # 1.4 10*3/uL (1.3-4.4); LYMPH % 17.2 % (27.0-41.0); MEAN CELL VOLUME 91.2 fl (80.0-94.0); MEAN CORPUSCULAR HGB 28.5 pg (27.0-31.0); MEAN CORPUSCULAR HGB CONC 31.3 g/dl (33.0-37.0); MEAN PLATELET VOLUME 9.1 fl (9.6-12.3); MONO # 0.6 10*3/uL (0.1-1.0); MONO % 7.5 % (3.0-9.0); NEUT # 5.9 10*3/uL (2.3-7.9); NEUT % 72.7 % (47.0-73.0); PLATELET COUNT AUTOMATED 328 10*3/uL (130-400); RED BLOOD COUNT 5.22 10*6/uL (4.50-5.90); RED CELL DISTRI WIDTH 14.3 % (0-14.5); WHITE BLOOD COUNT 8.2 10*3/uL (4.8-10.8)
[2020-06-29 16:07] LABS: ALBUMIN 3.3 gm/dl (3.1-4.5); ALKALINE PHOSPHATASE 116 U/L (45-117); BUN 11 mg/dl (7-24); CHLORIDE 105 mmol/L (98-107); CREATININE 1.14 mg/dL (0.70-1.30); POTASSIUM 3.6 mmol/L (3.5-5.1); SGOT/AST 9 IU/L (3-35); SGPT/ALT 12 U/L (12-78); SODIUM 137 mmol/L (136-145); TOTAL PROTEIN 8.9 gm/dL (6.4-8.2)
[2020-06-29] MEDS ORDERED: DOXYCYCLINE100 M3 PO (16:51)
== END 2020-06-29 17:08 | disposition home or self-care (01) ==
LOC: ED 14:49
PROVIDERS: Emergency Medicine
DX: N48.22 Cellulitis of corpus cavernosum and penis (principal); I10 Essential (primary) hypertension; I25.10 Atherosclerotic heart disease of native coronary artery without angina pectoris; I25.2 Old myocardial infarction; J44.9 Chronic obstructive pulmonary disease, unspecified; E78.00 Pure hypercholesterolemia, unspecified; Z88.8 Allergy status to other drugs, medicaments and biological substances; Z79.899 Other long term (current) drug therapy; Z79.82 Long term (current) use of aspirin; Z98.890 Other specified postprocedural states; Z87.891 Personal history of nicotine dependence

== ENCOUNTER 2020-07-16 18:20 | Emergency (ER) | payer OTHER ==
[~2020-07-16] VITALS: Ht 180.3 cm; Wt 81.6 kg
[~2020-07-16 18:20] MED LIST changes: +DOXYCYCLINE100 M3 PO
[2020-07-16 18:26] VITALS: BP 140/96
[2020-07-16 18:55] LABS: BASO # 0.1 10*3/uL (0.0-0.1); BASO % 0.3 % (0.0-1.0); EOS % 0.1 % (1.0-4.0); HEMATOCRIT 48.5 % (42.0-52.0); LYMPH % 14.7 % (27.0-41.0); MEAN CELL VOLUME 91.3 fl (80.0-94.0); MEAN CORPUSCULAR HGB 29.4 pg (27.0-31.0); MEAN CORPUSCULAR HGB CONC 32.2 g/dl (33.0-37.0); MEAN PLATELET VOLUME 9.5 fl (9.6-12.3); MONO # 1.2 10*3/uL (0.1-1.0); MONO % 5.9 % (3.0-9.0); NEUT # 15.8 10*3/uL (2.3-7.9); NEUT % 78.2 % (47.0-73.0); PLATELET COUNT AUTOMATED 301 10*3/uL (130-400); RED BLOOD COUNT 5.31 10*6/uL (4.50-5.90); RED CELL DISTRI WIDTH 15.8 % (0-14.5); WHITE BLOOD COUNT 20.2 10*3/uL (4.8-10.8)
[2020-07-16 19:15] LABS: ALBUMIN 3.2 gm/dl (3.1-4.5); CREATININE 1.61 mg/dL (0.70-1.30); POTASSIUM 4.5 mmol/L (3.5-5.1); TOTAL PROTEIN 8.4 gm/dL (6.4-8.2)
[2020-07-16] MEDS ORDERED: ZOFRAN4 MG PO (19:59)
[2020-07-16] MEDS ORDERED: OMEPRAZOLE40 MG PO (19:59)
[2020-07-16 20:07] LABS: BILIRUBIN Negative (Negative); BLOOD Trace-Lysed (Negative); CLARITY Cloudy (Clear); COLOR Yellow (Yellow); GLUCOSE Negative (Negative); KETONE Negative (Negative); LEUKO ESTERASE Negative (Negative); NITRITE Negative (Negative); SPECIFIC GRAVITY >= 1.030 (1.001-1.030)
[2020-07-16 20:18] LABS: BACTERIA 1+
== END 2020-07-16 20:05 | disposition home or self-care (01) ==
LOC: ED 18:20
PROVIDERS: Emergency Medicine
DX: B34.9 Viral infection, unspecified (principal); R79.82 Elevated C-reactive protein (CRP); D72.829 Elevated white blood cell count, unspecified; N17.9 Acute kidney failure, unspecified; I25.10 Atherosclerotic heart disease of native coronary artery without angina pectoris; J44.9 Chronic obstructive pulmonary disease, unspecified; I11.0 Hypertensive heart disease with heart failure; I50.22 Chronic systolic (congestive) heart failure; E78.5 Hyperlipidemia, unspecified; E78.00 Pure hypercholesterolemia, unspecified; G47.33 Obstructive sleep apnea (adult) (pediatric); Z88.8 Allergy status to other drugs, medicaments and biological substances; Z79.899 Other long term (current) drug therapy; Z79.82 Long term (current) use of aspirin; Z98.890 Other specified postprocedural states

== ENCOUNTER 2020-10-03 12:03 | Emergency (ER) | payer OTHER ==
[~2020-10-03] VITALS: Ht 180.3 cm; Wt 86.2 kg
[~2020-10-03 12:03] MED LIST changes: +OMEPRAZOLE40 MG PO; +ZOFRAN4 MG PO
[2020-10-03 12:23] VITALS: BP 138/84
[2020-10-03] MEDS ORDERED: MEDROL DOSEPAK4 MG PO (12:59)
== END 2020-10-03 13:15 | disposition home or self-care (01) ==
LOC: ED 12:03
DX: M54.42 Lumbago with sciatica, left side (principal); Z88.8 Allergy status to other drugs, medicaments and biological substances; Z79.899 Other long term (current) drug therapy; Z88.1 Allergy status to other antibiotic agents; Z79.82 Long term (current) use of aspirin; Z98.890 Other specified postprocedural states; Z87.891 Personal history of nicotine dependence

== ENCOUNTER 2020-10-13 09:36 | Emergency (ER) | payer OTHER ==
[~2020-10-13] VITALS: Ht 180.3 cm; Wt 86.2 kg
[2020-10-13 09:40] VITALS: BP 132/87
[2020-10-13 10:26] LABS: BASO # 0.1 10*3/uL (0.0-0.1); BASO % 0.6 % (0.0-1.0); EOS # 0.1 10*3/uL (0.0-0.4); EOS % 0.8 % (1.0-4.0); HEMATOCRIT 47.2 % (42.0-52.0); LYMPH # 2.3 10*3/uL (1.3-4.4); LYMPH % 20.8 % (27.0-41.0); MEAN CELL VOLUME 93.1 fl (80.0-94.0); MEAN CORPUSCULAR HGB 29.2 pg (27.0-31.0); MEAN CORPUSCULAR HGB CONC 31.4 g/dl (33.0-37.0); MEAN PLATELET VOLUME 10.2 fl (9.6-12.3); MONO # 0.7 10*3/uL (0.1-1.0); NEUT # 7.9 10*3/uL (2.3-7.9); NEUT % 71.3 % (47.0-73.0); PLATELET COUNT AUTOMATED 333 10*3/uL (130-400); RED BLOOD COUNT 5.07 10*6/uL (4.50-5.90); RED CELL DISTRI WIDTH 16.1 % (0-14.5); WHITE BLOOD COUNT 11.1 10*3/uL (4.8-10.8)
[2020-10-13 10:37] LABS: ALBUMIN 3.1 gm/dl (3.1-4.5); ALKALINE PHOSPHATASE 106 U/L (45-117); BUN 10 mg/dl (7-24); CHLORIDE 110 mmol/L (98-107); CREATININE 1.17 mg/dL (0.70-1.30); POTASSIUM 4.3 mmol/L (3.5-5.1); SGOT/AST 10 IU/L (3-35); SGPT/ALT 11 U/L (12-78); SODIUM 141 mmol/L (136-145); TOTAL PROTEIN 8.4 gm/dL (6.4-8.2)
[2020-10-13 12:06] LABS: BILIRUBIN Negative (Negative); BLOOD Trace-Lysed (Negative); CLARITY Clear (Clear); COLOR Yellow (Yellow); GLUCOSE Negative (Negative); KETONE Trace (Negative); LEUKO ESTERASE Negative (Negative); NITRITE Negative (Negative); SPECIFIC GRAVITY 1.025 (1.001-1.030); UROBILINOGEN 0.2 E.U./dl (0.0-1.0)
[2020-10-13 12:20] LABS: BACTERIA TRACE; EPITHELIAL CELLS 0-2; MUCOUS TRACE; RBC 0-2 rbc/hpf (0-2); WBC 0-2 wbc/hpf (0-5)
[2020-10-13] MEDS ORDERED: PREDNISONE10 MG PO (15:13)
== END 2020-10-13 15:30 | disposition home or self-care (01) ==
LOC: ED 09:36
PROVIDERS: Emergency Medicine
DX: M54.42 Lumbago with sciatica, left side (principal); Z79.899 Other long term (current) drug therapy; Z98.890 Other specified postprocedural states; Z95.818 Presence of other cardiac implants and grafts

== ENCOUNTER 2020-12-12 20:59 | Emergency (ER) | payer OTHER ==
[~2020-12-12] VITALS: Ht 180.3 cm; Wt 84.8 kg
[2020-12-12 22:12] VITALS: BP 164/70
== END 2020-12-13 01:01 | disposition home or self-care (01) ==
LOC: ED 20:59
DX: M54.42 Lumbago with sciatica, left side (principal); I25.10 Atherosclerotic heart disease of native coronary artery without angina pectoris; J44.9 Chronic obstructive pulmonary disease, unspecified; I25.2 Old myocardial infarction; E78.5 Hyperlipidemia, unspecified; I13.0 Hypertensive heart and chronic kidney disease with heart failure and stage 1 through stage 4 chronic kidney disease, or unspecified chronic kidney disease; N18.9 Chronic kidney disease, unspecified; I50.22 Chronic systolic (congestive) heart failure; Z88.8 Allergy status to other drugs, medicaments and biological substances; Z79.899 Other long term (current) drug therapy; Z79.2 Long term (current) use of antibiotics; Z79.82 Long term (current) use of aspirin; Z98.890 Other specified postprocedural states; Z95.5 Presence of coronary angioplasty implant and graft; Z87.891 Personal history of nicotine dependence

== ENCOUNTER 2021-03-22 01:56 | Emergency (ER) | payer OTHER ==
[~2021-03-22] VITALS: Ht 180.3 cm; Wt 81.6 kg
[2021-03-22 02:09] VITALS: BP 157/76
[2021-03-22] MEDS ORDERED: PREDNISONE20 M1 PO (02:43)
== END 2021-03-22 03:30 | disposition home or self-care (01) ==
LOC: ED 01:56
DX: M54.50 Low back pain, unspecified (principal); F17.200 Nicotine dependence, unspecified, uncomplicated; Z88.8 Allergy status to other drugs, medicaments and biological substances; Z79.82 Long term (current) use of aspirin

== ENCOUNTER → 2021-04-07 | Outpatient (CLI) | payer OTHER | END | disposition home or self-care (01) | LOC: COVID19 15:45 | PROVIDERS: ATTEND Family Medicine | DX: Z11.52 Encounter for screening for COVID-19 (principal); R06.89 Other abnormalities of breathing ==

== ENCOUNTER → 2021-07-19 | Outpatient (CLI) | payer OTHER ==
[~2021-07-19] MED LIST changes: +LIPITOR40 MG PO; +TOPROL XL25 MG PO
== END ==
LOC: CARD 01:21
PROVIDERS: ATTEND Internal Medicine Cardiovascular Disease
DX: I20.9 Angina pectoris, unspecified (principal)

== ENCOUNTER 2021-09-10 12:31 | Emergency (ER) | payer OTHER ==
[2021-09-10] MEDS ORDERED: COZAAR25 M1 PO (12:53)
[2021-09-10 12:54] VITALS: BP 157/88
[2021-09-10 13:19] LABS: BASO # 0.1 10*3/uL (0.0-0.1); BASO % 0.5 % (0.0-1.0); EOS # 0.3 10*3/uL (0.0-0.4); EOS % 2.8 % (1.0-4.0); HEMATOCRIT 47.9 % (42.0-52.0); LYMPH # 2.8 10*3/uL (1.3-4.4); LYMPH % 24.5 % (27.0-41.0); MEAN CORPUSCULAR HGB 29.5 pg (27.0-31.0); MEAN CORPUSCULAR HGB CONC 31.7 g/dl (33.0-37.0); MEAN PLATELET VOLUME 9.3 fl (9.6-12.3); MONO # 0.7 10*3/uL (0.1-1.0); MONO % 5.7 % (3.0-9.0); NEUT # 7.6 10*3/uL (2.3-7.9); PLATELET COUNT AUTOMATED 360 10*3/uL (130-400); RED BLOOD COUNT 5.15 10*6/uL (4.50-5.90); WHITE BLOOD COUNT 11.6 10*3/uL (4.8-10.8)
[2021-09-10 13:40] LABS: BILIRUBIN Negative (Negative); BLOOD Negative (Negative); CLARITY Clear (Clear); COLOR Yellow (Yellow); GLUCOSE Negative (Negative); KETONE Negative (Negative); LEUKO ESTERASE Negative (Negative); NITRITE Negative (Negative); SPECIFIC GRAVITY <= 1.005 (1.001-1.030); UROBILINOGEN 0.2 E.U./dl (0.0-1.0)
[2021-09-10 13:43] LABS: BUN 10 mg/dl (7-24); CHLORIDE 110 mmol/L (98-107); CREATININE 1.02 mg/dL (0.70-1.30); POTASSIUM 4.6 mmol/L (3.5-5.1); SODIUM 143 mmol/L (136-145)
== END 2021-09-10 15:34 | disposition home or self-care (01) ==
LOC: ED 12:31
PROVIDERS: Emergency Medicine
DX: R10.9 Unspecified abdominal pain (principal); F17.200 Nicotine dependence, unspecified, uncomplicated; Z88.6 Allergy status to analgesic agent; Z79.899 Other long term (current) drug therapy; Z98.890 Other specified postprocedural states

== ENCOUNTER → 2022-04-28 | Outpatient (CLI) | payer MEDICARE, MEDICAID | END | disposition home or self-care (01) | LOC: US 13:50 | PROVIDERS: ATTEND Internal Medicine Cardiovascular Disease | DX: I65.23 Occlusion and stenosis of bilateral carotid arteries (principal); H53.9 Unspecified visual disturbance ==

== ENCOUNTER 2022-05-29 23:45 | Emergency (ER) | payer MEDICARE, MEDICAID ==
[~2022-05-29] VITALS: Ht 175.2 cm; Wt 82.1 kg
[2022-05-29 23:51] VITALS: BP 144/90
[2022-05-30 00:14] LABS: BASO # 0.1 10*3/uL (0.0-0.1); BASO % 0.8 % (0.0-1.0); EOS # 0.3 10*3/uL (0.0-0.4); EOS % 2.1 % (1.0-4.0); HEMATOCRIT 46.6 % (42.0-52.0); LYMPH # 2.9 10*3/uL (1.3-4.4); LYMPH % 23.6 % (27.0-41.0); MEAN CELL VOLUME 91.9 fl (80.0-94.0); MEAN CORPUSCULAR HGB 29.6 pg (27.0-31.0); MEAN CORPUSCULAR HGB CONC 32.2 g/dl (33.0-37.0); MONO # 0.7 10*3/uL (0.1-1.0); MONO % 5.3 % (3.0-9.0); NEUT # 8.3 10*3/uL (2.3-7.9); PLATELET COUNT AUTOMATED 333 10*3/uL (130-400); RED BLOOD COUNT 5.07 10*6/uL (4.50-5.90); RED CELL DISTRI WIDTH 14.6 % (0-14.5); WHITE BLOOD COUNT 12.2 10*3/uL (4.8-10.8)
[2022-05-30 00:46] LABS: ALKALINE PHOSPHATASE 116 U/L (46-116); BUN 6 mg/dl (9-23); CHLORIDE 108 mmol/L (98-107); POTASSIUM 3.6 mmol/L (3.4-5.1); TOTAL PROTEIN 7.1 gm/dL (6.0-8.0)
[2022-05-30 00:53] LABS: SGPT/ALT < 7 U/L (10-49)
== END 2022-05-30 02:16 | disposition left against medical advice (07) ==
LOC: ED 23:45
PROVIDERS: Internal Medicine
DX: R07.9 Chest pain, unspecified (principal); Z88.5 Allergy status to narcotic agent; Z98.890 Other specified postprocedural states; Z87.891 Personal history of nicotine dependence; F12.90 Cannabis use, unspecified, uncomplicated

== ENCOUNTER 2022-12-21 07:53 | Emergency (ER) | payer MEDICARE, MEDICAID ==
[~2022-12-21] VITALS: Wt 79.4 kg
[2022-12-21 08:16] LABS: BASO # 0.1 10*3/uL (0.0-0.1); EOS # 0.4 10*3/uL (0.0-0.4); EOS % 3.7 % (1.0-4.0); HEMATOCRIT 45.9 % (42.0-52.0); LYMPH # 2.2 10*3/uL (1.3-4.4); LYMPH % 21.5 % (27.0-41.0); MEAN CELL VOLUME 95.6 fl (80.0-94.0); MEAN CORPUSCULAR HGB 30.4 pg (27.0-31.0); MEAN CORPUSCULAR HGB CONC 31.8 g/dl (33.0-37.0); MEAN PLATELET VOLUME 10.2 fl (9.6-12.3); MONO # 0.6 10*3/uL (0.1-1.0); NEUT # 6.7 10*3/uL (2.3-7.9); NEUT % 67.6 % (47.0-73.0); PLATELET COUNT AUTOMATED 292 10*3/uL (130-400); RED CELL DISTRI WIDTH 15.9 % (0-14.5)
[2022-12-21 08:34] VITALS: BP 118/54
[2022-12-21 08:38] LABS: ALKALINE PHOSPHATASE 109 U/L (46-116); BUN 8 mg/dl (9-23); CHLORIDE 106 mmol/L (98-107); POTASSIUM 3.9 mmol/L (3.4-5.1); TOTAL PROTEIN 7.1 gm/dL (6.0-8.0)
[2022-12-21 08:39] LABS: ACT PARTIAL THROMBO TIME 28.5 SECONDS (20.0-32.1)
[2022-12-21 08:43] LABS: SGPT/ALT < 7 U/L (10-49)
== END 2022-12-21 09:39 | disposition left against medical advice (07) ==
LOC: ED 07:53
PROVIDERS: Internal Medicine
DX: R07.89 Other chest pain (principal); I25.2 Old myocardial infarction; Z88.8 Allergy status to other drugs, medicaments and biological substances; Z79.82 Long term (current) use of aspirin; Z79.899 Other long term (current) drug therapy; Z98.890 Other specified postprocedural states; Z87.891 Personal history of nicotine dependence

== ENCOUNTER 2024-02-12 15:29 | Emergency (ER) | payer MEDICARE, MEDICAID ==
[~2024-02-12] VITALS: Ht 180.3 cm; Wt 77.1 kg
[2024-02-12 16:09] VITALS: BP 136/82
== END 2024-02-12 18:18 | disposition left against medical advice (07) ==
LOC: ED 15:29
DX: T83.031A Leakage of indwelling urethral catheter, initial encounter (principal); I10 Essential (primary) hypertension; I25.10 Atherosclerotic heart disease of native coronary artery without angina pectoris; I25.2 Old myocardial infarction; J44.9 Chronic obstructive pulmonary disease, unspecified; E78.00 Pure hypercholesterolemia, unspecified; M10.9 Gout, unspecified; Z88.5 Allergy status to narcotic agent; Z53.21 Procedure and treatment not carried out due to patient leaving prior to being seen by health care provider; Y73.8 Miscellaneous gastroenterology and urology devices associated with adverse incidents, not elsewhere classified; Y92.009 Unspecified place in unspecified non-institutional (private) residence as the place of occurrence of the external cause